=== PATIENT | male | born 1990 | race Caucasian/White ===

== ENCOUNTER 2016-07-06 08:04 | Emergency (ER) | payer OTHER ==
[~2016-07-06] VITALS: Ht 177.8 cm; Wt 77.3 kg
[2016-07-06 10:16] VITALS: BP 122/82
== END 2016-07-06 10:16 | disposition home or self-care (01) ==
LOC: ED 08:04
DX: S91.311A Laceration without foreign body, right foot, initial encounter (principal); W22.8XXA Striking against or struck by other objects, initial encounter; Y93.89 Activity, other specified; Y99.8 Other external cause status; Y92.89 Other specified places as the place of occurrence of the external cause
CPT/HCPCS: 90715; J1885; Q0092

== ENCOUNTER 2016-09-26 14:17 | Emergency (ER) | payer OTHER ==
[2016-09-26 17:25] VITALS: BP 108/60
== END 2016-09-26 17:55 | disposition home or self-care (01) ==
LOC: ED 14:17
DX: S91.312A Laceration without foreign body, left foot, initial encounter (principal); W22.8XXA Striking against or struck by other objects, initial encounter; Y93.89 Activity, other specified; Y92.89 Other specified places as the place of occurrence of the external cause; Y99.8 Other external cause status
CPT/HCPCS: 90715

== ENCOUNTER 2018-01-24 18:08 | Emergency (ER) | payer OTHER ==
[~2018-01-24] VITALS: Ht 175.3 cm; Wt 73.5 kg
[2018-01-24 18:12] VITALS: Ht 175.3 cm; Wt 73.5 kg
[2018-01-24 19:12] VITALS: BP 123/84
== END 2018-01-24 19:12 | disposition home or self-care (01) ==
LOC: ED 18:08
DX: J20.9 Acute bronchitis, unspecified (principal); F17.210 Nicotine dependence, cigarettes, uncomplicated
CPT/HCPCS: J7613; J7644